=== PATIENT | female | born 1975 | race Caucasian/White ===

== ENCOUNTER 2024-02-05 10:40 | Day surgery (SDC) | payer OTHER, SELFPAY ==
[2024-02-05 11:01] VITALS: BMI 32.3
[2024-02-05 11:18] VITALS: BP 107/77; PULSE 77; RESP 16; TEMP 36.8; O2SAT 97
[2024-02-05] MEDS: SODIUM CHLORIDE 0.9 % (FLUSH) 10 ML SYRINGE IVF (11:20)
[2024-02-05] MEDS: LACTATED RINGERS 1000 ML 1,000 ML 100 ML IV (11:20)
--- NOTE | 2024-02-05 12:36 | W.ANESCHARGE ---
Anesthesia Charges Start Date/Time Anesthesia Start Date: 02/05/24 Anesthesia Start Time: 12:36 Stop Date/Time Anesthesia Stop Date: 02/05/24 Anesthesia Stop Time: 13:47
[2024-02-05] MEDS: BUPIVACAINE 0.25% 30 ML 20 ML INJECTION (12:37)
[2024-02-05] MEDS: CEFAZOLIN 2 GM INJ IVP (12:40)
--- NOTE | 2024-02-05 13:00 | SUR.OPER ---
PATIENT QUESTIONS ANSWERED SATISFACTORILY PREOPERATIVELY.? PATIENT BROUGHT TO OR #4 PER CART.? Patient positioned supine on OR #4 bed.? The perioperative?team supported arms bilaterally on arm boards.? Final approval of positioning by surgeon.?
--- NOTE | 2024-02-05 13:41 | SUR.OPER ---
Young ÁLVAREZ MD, STARTED BONE STIMULATOR AT 13:40.
--- NOTE | 2024-02-05 13:43 | W.PODPROC_ITS ---
Date of Procedure: 02/05/24 Surgeon: Ramakrishna Cardoso DPM Pre-op Diagnosis: Fifth metatarsal metaphyseal diaphyseal fracture left (Lopez fracture) Post-op Diagnosis: Fifth metatarsal metaphyseal diaphyseal fracture left (Lopez fracture) Type of Procedure: ORIF 5th metatarsal fracture left Indications: patient sustained a Lopez fracture and has decided to proceed with surgical correction. Reviewed the procedure, recovery, expectations and potential complications. These include but are not limited to: Poor wound healing, infection, nonunion, delayed union, hardware irritation, nerve injury, potentially need for future surgery, deep venous thrombosis, pulmonary embolism possible . She understands risks written consent was obtained. Site marked. Procedure Description: Patient brought the operating room placed supine position on operating table. IV sedation was initiated local anesthetic injected into the left foot. She was prepped and draped in sterile fashion. Standard time-out protocol followed. Left foot was exsanguinated and the tourniquet inflated. 2 cm incision made proximal 5th metatarsal base. Blunt dissection carried down to the 5th metatarsal base. Guide pin was then introduced into the base of the 5th metatarsal and driven out into the shaft of the 5th metatarsal. Multiple C-arm images confirmed excellent position of the guide pin. Next a drill was placed over the guide pin and then the canal tapped. Guide pin removed and a 40 mm x 4.5 mm screw was inserted. Excellent purchase noticed and excellent reduction of the fracture site. C-arm confirmed position of the screw was optimal. Wound was thoroughly irrigated normal sterile saline. Subcutaneous tissues reapproximated 4-0 Monocryl and skin closed with 4-0 Prolene. Sterile dressing was applied. Tourniquet was released. Normal capillary fill time returned all digits. [employer] bone stimulator was then applied to the left foot and the initial cycle turned on. She was then transferred to the OR cart. She was transferred from OR to same-day surgery with vital signs stable and vascular status intact. She was given both written and verbal postop instructions. She will be discharged home per same-day surgery protocol. She is given oxycodone for pain. She is heel weight-bearing for transfers in a cam boot with crutches. Follow-up in 3 days. Anesthesia: MAC and local Hemostasis: ankle Estimated blood loss (mL): 2 Implants: Doorman Lopez fracture screw x1 Specimens: none sent Disposition: same day
--- NOTE | 2024-02-05 13:45 | CRLHL7_ITS ---
For Patients: As a result of the Cures Act, medical imaging exams and procedure reports are released immediately into your electronic medical record. You may view this report before your referring provider. If you have questions, please contact your health care provider. INDICATION: ORIF 5th metatarsal TECHNIQUE: Three views of the left foot FINDINGS/IMPRESSION: Fluoroscopic images demonstrate postoperative fixation with screw traversing the 5th metatarsal fracture normal alignment. 34 seconds fluoro time. Dictated by Traci Krause MD @ 02/06/2024 6:12:42 AM (Electronically Signed)
[2024-02-05 13:47] VITALS: BP 104/74; PULSE 79; RESP 16; TEMP 36.3; O2SAT 98
--- NOTE | 2024-02-05 13:49 | W.ANESCHARGE ---
Anesthesia Charges Start Date/Time Anesthesia Start Date: 02/05/24 Anesthesia Start Time: 12:36 Stop Date/Time Anesthesia Stop Date: 02/05/24 Anesthesia Stop Time: 13:47
[2024-02-05 14:00] VITALS: BP 121/86; PULSE 55; RESP 16; O2SAT 100
[2024-02-05 14:15] VITALS: BP 107/78; PULSE 62; RESP 16; O2SAT 100
== END 2024-02-05 14:32 | disposition home or self-care (01) ==
PROVIDERS: PCP Nurse Practitioner Family; Visit Provider Podiatrist
PROC: (CPT 28485; principal; 2024-02-05 13:45)
DX: S92.352A Displaced fracture of fifth metatarsal bone, left foot, initial encounter for closed fracture (principal)
CPT/HCPCS: 28485; 01480; 73620; C1713; E0747; J0665; J0690; J2405; J2704; J3010; J7120